=== PATIENT | male | born 1965 | race Caucasian/White ===

== ENCOUNTER 2017-03-04 19:22 | Observation (INO) ==
[2017-03-04] MEDS ORDERED: Ibuprofen 800 MG TABLET PO ONE (19:40)
--- NOTE | 2017-03-04 19:43 | Emergency Department Note ---
Disposition Clinical Impression: Fever Qualifiers: Fever type: unspecified Qualified Code(s): R50.9 - Fever, unspecified Tick bite Qualifiers: Encounter type: initial encounter Qualified Code(s): W57.XXXA - Bitten or stung by nonvenomous insect and other nonvenomous arthropods, initial encounter Disposition: Admitted As Inpatient Condition: Good Referrals: NO,PCP [Primary Care Provider] - Forms: ED Satisfaction Letter Time of Disposition: 20:41 General Adult HPI - General Chief complaint: ED Skin/Abscess/Foreign Body Stated complaint: tick bite, fever Source: patient, family Limitations: no limitations - History of Present Illness HPI Narrative: Patient presents to the emergency department for evaluation of generalized myalgias with weakness and fever. Patient states that on Thursday he noted a tick attached to his left hip which he removed he believes fully intact. He states that on Thursday he began develop generalized weakness with myalgias and since that time he has had generalized weakness with decreased appetite generalized myalgias and fever. He has a minimal intermittent headache. No photophobia. No neck pain or stiffness. No visual changes confusion speech changes motor or sensory deficits. Denies chest pain shortness of breath or cough. Denies abdominal pain nausea vomiting. He has had a few loose stools, no significant diarrhea. No recent antibiotic use. No known sick contacts. Pain Scale: 3 - Related Data Home Medications Medication Instructions Recorded Confirmed No Known Home Drugs 03/04/17 03/04/17 Allergies Allergy/AdvReac Type Severity Reaction Status Date / Time No Known Allergies Allergy Verified 03/04/17 19:23 Constitutional: Reports: as per HPI Eyes: Denies: eye pain, eye discharge, vision change ENT ED: Denies: ear pain, throat pain Cardiovascular: Denies: chest pain, palpitations, dyspnea on exertion, orthopnea , edema, syncope Respiratory: Denies: cough, dyspnea, wheezes, hemoptysis Gastrointestinal: Reports: diarrhea. Denies: abdominal pain, nausea, vomiting Genitourinary: Denies: urgency, dysuria, frequency, hematuria Musculoskeletal: Reports: myalgia. Denies: back pain, neck pain Integumentary: Reports: rash (Localized rash in the area and left hip where the tick was located) Neurological: Reports: headache. Denies: weakness, numbness, paresthesias, confusion, abnormal gait, vertigo Endocrine: Reports: fatigue Hematological/Lymphatic: Denies: easy bleeding, easy bruising Past Medical History - Past Medical History Medical history: Reports: no medical history Surgical history: Reports: no surgical history Psychiatric history: Reports: no psych history - Social History Smoking Status: Never smoker Smokeless Tobacco Status: No Alcohol use: Reports: occasionally Drug use: Reports: none Physical Exam - General Limitations: no limitations General appearance: alert, in no apparent distress (Patient resting comfortably smiling and interactive alert and appropriate cooperative and pleasant) - Head Head exam: atraumatic, normocephalic - Eye Eye exam: Present: normal appearance, PERRL, EOMI. Absent: scleral icterus, conjunctival injection - ENT ENT exam: normal exam, normal oropharynx, mucous membranes moist, TM's normal bilaterally - Neck Neck exam: Present: normal inspection, full ROM. Absent: tenderness, meningismus, lymphadenopathy - Respiratory Respiratory exam: Present: normal lung sounds bilaterally - Cardiovascular Cardiovascular exam: Present: normal rhythm, tachycardia - Abdominal Exam Abdominal exam: Present: soft, Non-Tender. Absent: tenderness, distention, guarding, rebound, rigidity - Extremities Exam Extremities exam: Present: normal inspection, full ROM, normal capillary refill. Absent: tenderness, pedal edema, joint swelling, calf tenderness - Expanded Lower Extremity Exam Neurovascular/Tendon exam: Present: normal capillary refill - Back Exam Back exam: Present: normal inspection. Absent: tenderness - Neurological Exam Neurological exam: Present: alert, oriented X3 - Psychiatric Psychiatric exam: Present: normal affect, normal mood - Skin Skin exam: Present: other (Patient is a scab left anterior hip without any evidence of retained foreign body Or tick. It is approximately 5 cm area of surrounding erythema. It is not a target lesion. It is not petechiae or purpura. There is no proximal streaking or evidence of cellulitis. There is no necrosis tenderness or crepitus.) Course Vital Signs Temperature 103.1 F H 03/04/17 19:24 Pulse Rate 123 03/04/17 19:24 Respiratory Rate 16 03/04/17 19:24 Blood Pressure 148/101 03/04/17 19:24 O2 Sat by Pulse Oximetry 96 03/04/17 19:24 Temperature 103.1 F H 03/04/17 19:24 Pulse Rate 123 03/04/17 19:24 Respiratory Rate 16 03/04/17 19:24 Blood Pressure 148/101 03/04/17 19:24 O2 Sat by Pulse Oximetry 96 03/04/17 19:24 Oxygen Delivery Oxygen Delivery Room Air Medical Decision Making - [facility] Narrative Medical decision making narrative: Time 2039: Heart rate 96, SPO2 95% on room air, blood pressure 136/101. Patient will be admitted to the hospitalist service for ongoing evaluation and treatment. Symptoms and laboratory evaluation certainly could be related to Ehrlichiosis. There is no evidence of carditis. No evidence of meningitis or encephalitis. - Lab Data Lab results reviewed: Yes I reviewed the patient's lab results. Result diagrams: 03/04/17 19:53 03/04/17 19:53 Lab Results 03/04/17 03/04/17 03/04/17 Range/Units 19:53 19:53 19:53 WBC 4.9 (4.3-11.1) K/mcL RBC 5.09 (4.19-5.50) M/mcL Hgb 16.1 (12.9-16.9) g/dL Hct 44.5 (37.5-50.1) % MCV 87.4 (83.0-100.0) fL MCH 31.6 (28.0-33.3) pg MCHC 36.2 H (31.6-35.5) g/dL RDW 12.1 (11.5-14.5) % Plt Count 60 L (140-400) K/mcL MPV 10.8 (9.4-12.4) fL Immature Gran % 0.0 (0-4) % Seg Neutrophils % 81.5 % Lymphocytes % 11.0 % Monocytes % 7.3 % Eosinophils % 0.0 % Basophils % 0.2 % Neutrophils # 4.0 (1.6-8.9) K/mcL Lymphocytes # 0.5 L (0.6-4.6) K/mcL Monocytes # 0.4 (0.0-1.3) K/mcL Eosinophils # 0.0 (0.0-0.6) K/mcL Basophils # 0.0 (0.0-0.2) K/mcL Platelet Estimate Decreased L (Normal) PT 12.0 (9.4-12.1) Seconds INR 1.1 APTT 28.8 (26.0-36.0) Seconds VBG Lactic Acid (0.5-2.2) mmol/L Sodium 133 L (136-145) mEq/L Potassium 3.8 (3.5-4.5) mEq/L Chloride 100 (98-109) mEq/L Carbon Dioxide 18 L (19-29) mEq/L BUN 19 (8-26) mg/dL Creatinine 0.88 (0.72-1.25) mg/dL Est GFR ( Amer) > 60 (> 60) Est GFR (Non-Af Amer) > 60 (> 60) BUN/Creatinine Ratio 22 (6-26) Glucose 104 H (70-99) mg/dL Calculated Osmolality 279 L (280-300) Calcium 8.9 (8.6-10.8) mg/dL Phosphorus 1.9 L (2.3-4.7) mg/dL Magnesium 2.0 (1.6-2.6) mg/dL Total Bilirubin 0.8 (0.2-1.2) mg/dL Direct Bilirubin 0.3 (0.0-0.5) mg/dL Indirect Bilirubin 0.5 (0.0-1.2) mg/dL AST 97 H (5-34) Units/L ALT 97 H (0-55) Units/L Alkaline Phosphatase 87 (38-126) Units/L Troponin I (0-0.03) ng/mL Serum Total Protein 7.4 (6.0-8.3) g/dL Albumin 3.7 (3.5-5.0) g/dL Globulin 3.7 H (2.4-3.5) g/dL Albumin/Globulin Ratio 1.0 L (1.1-2.2) 03/04/17 03/04/17 Range/Units 19:53 19:53 WBC (4.3-11.1) K/mcL RBC (4.19-5.50) M/mcL Hgb (12.9-16.9) g/dL Hct (37.5-50.1) % MCV (83.0-100.0) fL MCH (28.0-33.3) pg MCHC (31.6-35.5) g/dL RDW (11.5-14.5) % Plt Count (140-400) K/mcL MPV (9.4-12.4) fL Immature Gran % (0-4) % Seg Neutrophils % % Lymphocytes % % Monocytes % % Eosinophils % % Basophils % % Neutrophils # (1.6-8.9) K/mcL Lymphocytes # (0.6-4.6) K/mcL Monocytes # (0.0-1.3) K/mcL Eosinophils # (0.0-0.6) K/mcL Basophils # (0.0-0.2) K/mcL Platelet Estimate (Normal) PT (9.4-12.1) Seconds INR APTT (26.0-36.0) Seconds VBG Lactic Acid 1.2 (0.5-2.2) mmol/L Sodium (136-145) mEq/L Potassium (3.5-4.5) mEq/L Chloride (98-109) mEq/L Carbon Dioxide (19-29) mEq/L BUN (8-26) mg/dL Creatinine (0.72-1.25) mg/dL Est GFR ( Amer) (> 60) Est GFR (Non-Af Amer) (> 60) BUN/Creatinine Ratio (6-26) Glucose (70-99) mg/dL Calculated Osmolality (280-300) Calcium (8.6-10.8) mg/dL Phosphorus (2.3-4.7) mg/dL Magnesium (1.6-2.6) mg/dL Total Bilirubin (0.2-1.2) mg/dL Direct Bilirubin (0.0-0.5) mg/dL Indirect Bilirubin (0.0-1.2) mg/dL AST (5-34) Units/L ALT (0-55) Units/L Alkaline Phosphatase (38-126) Units/L Troponin I 0.02 (0-0.03) ng/mL Serum Total Protein (6.0-8.3) g/dL Albumin (3.5-5.0) g/dL Globulin (2.4-3.5) g/dL Albumin/Globulin Ratio (1.1-2.2) ITS Impressions Chest X-Ray 03/04/17 19:34 IMPRESSION: Negative portable chest. D/ / Gerhard Weber MD / Gerhard Weber MD Interpreting Provider: Gerhard Weber MD - Radiology Data Radiology results reviewed: Yes I reviewed the patient's radiology results. - EKG Data EKG #1 EKG attestation: Yes I reviewed and interpreted this EKG. EKG shows normal: sinus rhythm Rate: tachycardia (Sinus tachycardia with a rate of 116. No acute ST segment or T-wave changes.)
[2017-03-04] MEDS: 0.9 % Sodium Chloride 1,000 ML IVC SCH ×3 (19:54→23:01)
[2017-03-04 20:00] LABS: Basophils % 0.2 %; Hematocrit 44.5 % (37.5-50.1); Hemoglobin 16.1 g/dL (12.9-16.9); Lymphocytes # 0.5 K/mcL (0.6-4.6); Mean Corpuscular HGB Conc 36.2 g/dL (31.6-35.5); Mean Corpuscular Hemoglobin 31.6 pg (28.0-33.3); Mean Corpuscular Volume 87.4 fL (83.0-100.0); Mean Platelet Volume 10.8 fL (9.4-12.4); Monocytes # 0.4 K/mcL (0.0-1.3); Monocytes % 7.3 %; Red Blood Count 5.09 M/mcL (4.19-5.50); Red Cell Distribution Width 12.1 % (11.5-14.5); Segmented Neutrophils % 81.5 %
[2017-03-04 20:06] LABS: Platelet Count 60 K/mcL (140-400)
[2017-03-04] MEDS ORDERED: Doxycycline 100 MG in 0.9 % Sodium Chloride Mini Bag 100 ML IVPB ONE (20:07)
[2017-03-04 20:08] LABS: INR 1.1
[2017-03-04 20:11] LABS: Activated Partial Thrombo Time 28.8 Seconds (26.0-36.0)
[2017-03-04 20:21] LABS: Alanine Aminotransferase 97 Units/L (0-55); Albumin 3.7 g/dL (3.5-5.0); Alkaline Phosphatase 87 Units/L (38-126); Aspartate Amino Transferase 97 Units/L (5-34); BUN/Creatinine Ratio 22 (6-26); Bilirubin,Direct 0.3 mg/dL (0.0-0.5); Bilirubin,Indirect 0.5 mg/dL (0.0-1.2); Bilirubin,Total 0.8 mg/dL (0.2-1.2); Blood Urea Nitrogen 19 mg/dL (8-26); Calcium 8.9 mg/dL (8.6-10.8); Carbon Dioxide 18 mEq/L (19-29); Chloride 100 mEq/L (98-109); Globulin 3.7 g/dL (2.4-3.5); Glucose 104 mg/dL (70-99); Osmolality,Calculated 279 (280-300); Phosphorous 1.9 mg/dL (2.3-4.7); Potassium 3.8 mEq/L (3.5-4.5); Sodium 133 mEq/L (136-145); Total Protein 7.4 g/dL (6.0-8.3); eGFR For African Americans > 60 (> 60); eGFR For Non-African Americans > 60 (> 60)
[2017-03-04 20:26] LABS: Platelet Estimate Decreased (Normal)
[2017-03-04] MEDS ORDERED: Acetaminophen 325 MG TABLET PO PRN (20:42)
[2017-03-04] MEDS ORDERED: Ibuprofen 400 MG TABLET PO PRN (20:42)
[2017-03-04] MEDS ORDERED: Naloxone 0.4 MG/ML INJ IVP PRN (20:42)
[2017-03-04 22:43] LABS: Bilirubin,Urine Negative (Negative); Blood,Urine Negative (Negative); Clarity,Urine Clear (Clear); Color,Urine Yellow (Yellow); Glucose,Urine (UA) Normal (Normal); Ketones,Urine 80 mg/dL (Negative); Leukocyte Esterase,Urine Negative (Negative); Nitrite,Urine Negative (Negative); PH,Urine 5.5 pH Units (5.0-8.0); Protein,Urine 30 mg/dL (Neg-Trace); Urobilinogen,Urine Normal (Normal)
[2017-03-04 22:51] LABS: RBC,Urine 0-3 per hpf (0-3)
[2017-03-04 22:52] LABS: Squamous Epithelial Cell,Urine Few per lpf (None-Few)
[2017-03-05] MEDS: 0.9 % Sodium Chloride 1,000 ML IVC SCH ×2 (01:25→05:22)
[2017-03-05] MEDS ORDERED: Doxycycline 100 MG in 0.9 % Sodium Chloride Mini Bag 100 ML IVPB SCH (06:00)
[2017-03-05 06:10] LABS: Hematocrit 42.8 % (37.5-50.1); Hemoglobin 15.1 g/dL (12.9-16.9); Mean Corpuscular HGB Conc 35.3 g/dL (31.6-35.5); Mean Corpuscular Hemoglobin 31.5 pg (28.0-33.3); Mean Corpuscular Volume 89.4 fL (83.0-100.0); Mean Platelet Volume 12.1 fL (9.4-12.4); Red Blood Count 4.79 M/mcL (4.19-5.50); Red Cell Distribution Width 12.2 % (11.5-14.5)
[2017-03-05 06:28] LABS: Alanine Aminotransferase 85 Units/L (0-55); Alkaline Phosphatase 76 Units/L (38-126); Aspartate Amino Transferase 89 Units/L (5-34); BUN/Creatinine Ratio 17 (6-26); Bilirubin,Total 0.7 mg/dL (0.2-1.2); Blood Urea Nitrogen 13 mg/dL (8-26); Carbon Dioxide 23 mEq/L (19-29); Chloride 106 mEq/L (98-109); Globulin 3.1 g/dL (2.4-3.5); Glucose 86 mg/dL (70-99); Osmolality,Calculated 287 (280-300); Potassium 3.8 mEq/L (3.5-4.5); Sodium 139 mEq/L (136-145); Total Protein 6.1 g/dL (6.0-8.3); eGFR For African Americans > 60 (> 60); eGFR For Non-African Americans > 60 (> 60)
[2017-03-05 07:09] LABS: Platelet Count 52 K/mcL (140-400)
[2017-03-05 07:54] LABS: Lymphocytes # 0.3 K/mcL (0.6-4.6); Monocytes # 0.1 K/mcL (0.0-1.3); Neutrophils # 3.1 K/mcL (1.6-8.9); Platelet Estimate Decreased (Normal); Reactive Lymphocytes Present (Not Present)
[2017-03-05 11:39] VITALS: BP 131/80
--- NOTE | 2017-03-05 11:48 | Internal Med History&Physical ---
Date of Encounter: 03/05/17 Time of Encounter: 11:00 Assessment and Plan (1) Fever Current visit: Yes Status: Acute I explained to him it was unlikely Lyme disease because of the duration of tick attachment. The differential diagnosis includes human granulocytic anaplasmosis , ehrlichiosis and babesiosis. He was given IV doxycycline and emergency room. Qualifiers: Fever type: unspecified Qualified Code(s): R50.9 - Fever, unspecified (2) Elevated LFTs Current visit: Yes Status: Acute Duration unknown. Suspect secondary to infection causing the fever rather than alcohol consumption (averages 6 beers per day) since the ALT/AST ratio is 1.0. (3) Thrombocytopenia Current visit: Yes Status: Acute Duration unknown. Suspect due to acute infection rather than alcohol intake bone marrow suppression. Internal Medicine - H&P: HPI Chief complaint: Fever and weakness Admitted From: Home Plans for Post Hospital Care: Home History of present illness: Mr. Amador is a 51 year old male who came to emergency room complaining of progressive fever and weakness onset March 01. He states he removed an intact tick February 27. He states the tick was attached less than 18 hours. There was redness at the site of tick removal that did not resolve over the next few days. He felt progressively weaker and began having fevers. There was minimal cough and looseness of the stools but no overt diarrhea or vomiting. He had no other URI symptoms. He came to emergency room was evaluated and found to have slight elevation of LFTs and thrombocytopenia. He was admitted to [facility] floor for ongoing care needs. He states he feels slightly improved at the present time. He denies previous similar episodes. He denies unusual travel or exposure to animals. He reports no other family members are similarly affected. His not had blood work for approximately 3 years. Past Med Surg Social Fam HX - Past Medical History Medical history: no medical history Psychiatric history: no psych history - Past Surgical History Surgical History: no surgical history - Social History Smoking Status: Never smoker Smokeless Tobacco Status: No Alcohol use: occasionally Drug use: none Internal Medicine - H&P: Meds No Known Home Drugs 03/04/17 [History] Allergies No Known Allergies Allergy (Verified 03/04/17 19:23) All Systems PM: A 10-system review of systems was performed and is negative for pertinent findings except as documented above in the HPI. Review of systems: Gen.: He states his weight is stable past few months Cardiovascular: He denies hypertension ND heart failure angina DVT or pulmonary embolus Respiratory: He is a lifelong nonsmoker and has no known chronic lung disease GI: Denies disorders of his liver gallbladder or exocrine pancreas : He denies hematuria dysuria or kidney stones Neurologic: He denies large distribution strokes or seizures Endocrine: Denies diabetes thyroid disease or hyperlipidemia Hematology/oncology: Denies blood disorders cancers or anemia Psychiatric: He denies anxiety depression other mental health issues Musk skeletal: He states he has been diagnosed with gout in the past. He does not follow with a PCP/physician regularly and has had no flares since the most recent one 2 years ago. He denies other bone joint or muscle disorders. - Constitutional Vitals: Temp Pulse Resp BP Pulse Ox 98.3 F 67 16 131/80 96 03/05/17 11:38 03/05/17 11:38 03/05/17 11:38 03/05/17 11:38 03/05/17 11:38 Exam: Gen.: He is a well-developed well-nourished male who appears diaphoretic but denies significant pain or dyspnea HEENT: Head is atraumatic and normocephalic. Eyes: EOMI. There is no scleral icterus. Mouth: Mucosa is moist. Neck: Supple and nontender. There is no thyromegaly or adenopathy noted. Heart: Regular without murmurs gallops or ectopics Lungs: No wheezes or crackles are heard. Abdomen: Soft and nontender. No masses or guarding are noted. Extremities: There is no cyanosis edema or clubbing noted. Dorsalis pedis and posterior tibial pulses are 1-2 over 2 palpable bilaterally. Neurologic: Mental status: He is talkative and a good historian. Cranial nerves : Smile is symmetric. Forehead wrinkles bilaterally. Tongue protrudes midline. EOMI. Motor: There is no pronator drift. Cerebellar: Finger to nose is intact bilaterally. Skin: His skin is warm and moist. There is an area in his left lower anterior lateral abdominal area of erythema approximately 6 cm diameter with sharp margins. There is a healing very shallow ulcerative area in the superior area of the erythema. Internal Med - H&P Results - Labs CBC & Chem 7: 03/05/17 05:11 03/05/17 05:11 Labs: Short CBC 03/05/17 Range/Units 05:11 WBC 3.5 L (4.3-11.1) K/mcL Hgb 15.1 (12.9-16.9) g/dL Hct 42.8 (37.5-50.1) % Plt Count 52 L (140-400) K/mcL Neutrophils # 3.1 (1.6-8.9) K/mcL BMP 03/05/17 05:11 Sodium 139 Potassium 3.8 Chloride 106 Carbon Dioxide 23 BUN 13 Creatinine 0.78 Glucose 86 Calcium 8.0 L Liver Function 03/05/17 Range/Units 05:11 Total Bilirubin 0.7 (0.2-1.2) mg/dL AST 89 H (5-34) Units/L ALT 85 H (0-55) Units/L Alkaline Phosphatase 76 (38-126) Units/L Albumin 3.0 L (3.5-5.0) g/dL Urine 03/04/17 Range/Units 22:39 Urine Color Yellow (Yellow) Urine Clarity Clear (Clear) Urine pH 5.5 (5.0-8.0) pH Units Ur Specific [place] 1.010 (1.010-1.025) Urine Protein 30 H (Neg-Trace) mg/dL Urine Glucose (UA) Normal (Normal) mg/dL
--- NOTE | 2017-03-05 12:04 | Discharge Summary ---
Date of Encounter: 03/05/17 Time of Encounter: 11:00 - Discharge Diagnosis (1) Fever Priority: Primary Status: Acute Qualifiers: Fever type: unspecified Qualified Code(s): R50.9 - Fever, unspecified (2) Elevated LFTs Priority: Secondary Status: Acute (3) Thrombocytopenia Priority: Secondary Status: Acute - Discharge Medications Prescriptions: Doxycycline 100 mg PO BID #14 capsule Lactobacillus [Culturelle] 1 each PO BID #14 [email or web address] Home Medications: Doxycycline 100 mg PO BID #14 capsule 03/05/17 [Rx] Lactobacillus [Culturelle] 1 each PO BID #14 cap.[email or web address] 03/05/17 [Rx] Allergies/Adverse Reactions: Allergies No Known Allergies Allergy (Verified 03/04/17 19:23) Date of admission: 03/04/17 20:52 Primary care physician: PCP NO - Patient Status Disposition: Home, Self-Care Condition: Good Functional capacity at discharge: independent ambulation Overall status at discharge: patient is progressing back to baseline - Discharge Instructions Follow Up With: NO,PCP [Primary Care Provider] - 1 week - Diet and Activity Activity: resume usual activities as tolerated Diet: advance to your usual diet Hospital course: Mr. Amador is a 51 year old male who came to emergency room complaining of progressive fever and weakness onset March 01. He states he removed an intact tick February 27. He states the tick was attached less than 18 hours. There was redness at the site of tick removal that did not resolve over the next few days. He felt progressively weaker and began having fevers. There was minimal cough and looseness of the stools but no overt diarrhea or vomiting. He had no other URI symptoms. He came to emergency room was evaluated and found to have slight elevation of LFTs and thrombocytopenia. He was admitted to [facility] for ongoing care needs. Initial orders were written by the emergency room physician. I saw him on March 05 and performed a history physical and discharge. I told him I did not think he likely had Lyme disease because of the tick attachment duration under 24 hours. I thought he might have other tickborne illnesses. IgG and IgM antibodies for Babesia and Anaplasma were drawn prior to discharge. PCR testing was not available. He will be treated empirically with additional 7 day course of doxycycline after discharge with lactobacillus given also. I told him to follow with a PCP within one week to check results of the labs ordered prior to discharge and do further testing for babesiosis ,ehrlichiosis, or human granulocytic anaplasmosis if needed. Follow-up labs on March 05 showed slight improvement in LFTs. His renal function remained normal. Platelet count decreased minimally from 60,000 on admission to 52,000. His PCP can order follow-up labs to follow LFTs and platelet count. He should follow with a PCP within one week. He will remain off work until March 11. - Time Spent with Patient Total time spent providing and/or coordinating discharge services: - Constitutional Vitals: Temp Pulse Resp BP Pulse Ox 98.3 F 67 16 131/80 96 03/05/17 11:38 03/05/17 11:38 03/05/17 11:38 03/05/17 11:38 03/05/17 11:38
--- NOTE | 2017-03-05 17:45 | Electrocardiograph Report ---
[address] [place], [place] [address] Test Date: 2017-03-04 Pat Name: Zeus Amador Department: [id number] Room: [facility] Gender: M Animal Shelter Clerk: Louie : 1965 Requested By: Axel Dawson Order Number: [id number] Reading MD: Alisia Lechuga Measurements Intervals [place] Rate: 116 P: 34 [place]: 134 QRS: -12 QRSD: 98 T: 38 QT: 308 QTc: 377 Interpretive Statements SINUS TACHYCARDIA ABNORMAL RHYTHM ECG Electronically Signed On 03-05-2017 17:43:47 EDT by Alisia Lechuga
[2017-03-09 10:40] LABS: Anaplasma phagocytophilum IgG <1:80 (<1:80); Anaplasma phagocytophilum IgM < 1:16 (< 1:16)
== END 2017-03-05 12:45 | disposition home or self-care (01) ==
LOC: EMEROOPIK 19:22 → INPPIK 19:22
PROVIDERS: ADMIT Internal Medicine; ATTEND Internal Medicine